=== PATIENT | male | born 1990 | race Two or more races ===

== ENCOUNTER 2017-01-05 03:38 | Emergency (ER) | payer OTHER ==
[~2017-01-05] VITALS: Ht 157.5 cm; Wt 68.0 kg
[2017-01-05 04:00] VITALS: BP 134/80
--- NOTE | 2017-01-05 04:00 | NUR ---
PT [facility] FOR RIGHT HAND LACERATION, PT STATES "HIT SOMEONES TOOTH" PT AOX4 RR EVEN AND UNLABORED. NO SOB NOTED. NAD NOTED. NO NVD AT THIS TIME. PT NOT DIPAHORETIC. PT GOWNED AND PLACED ON MONITOR WAITING FOR MD BROWN. LADP AT BEDSIDE.
[2017-01-05] MEDS ORDERED: TDAP [DIPH/PERTUSSIS/TET] 0.5 ML VIAL IM ONE ×2 (04:08→04:30)
[2017-01-05] MEDS ORDERED: AMOX/CLAVULANATE 875 MG TABLET ONE (04:29)
[2017-01-05] MEDS ORDERED: AMOX/CLAVULANATE 875 MG TABLET PO ONE (04:30)
--- NOTE | 2017-01-05 04:30 | NUR ---
placed ice pack on the dressing area, elevated arm.
[2017-01-05] MEDS ORDERED: IBUPROFEN 400 MG TABLET ONE (04:39)
--- NOTE | 2017-01-05 04:44 | NUR ---
VERBAL ORDERS TO GIVE PT MOTRIN 400MG 1 TAB PO NOW ONE TIME. PT MEDICATED. Addendum: 01/05/17 at 0445 by DAYAN VERBAL ORDERS PER DR. THURMAN
--- NOTE | 2017-01-05 04:57 | NUR ---
Patient discharged in stable condition, in [employer] custody. Written and verbal after care instructions given. Patient verbalizes understanding of instruction. ambulatory with a steady gait
[2017-01-05] MEDS ORDERED: IBUPROFEN 400 MG TABLET PO ONE (05:00)
== END 2017-01-05 05:00 ==
LOC: ER 03:41
DX: S61.411A Laceration without foreign body of right hand, initial encounter (principal); X58.XXXA Exposure to other specified factors, initial encounter; Y93.89 Activity, other specified; Y92.89 Other specified places as the place of occurrence of the external cause; Y99.8 Other external cause status
CPT/HCPCS: 73130; 90471; 90715; 99284; A4606; Z7610